=== PATIENT | male | born 1975 | race Caucasian/White ===

== ENCOUNTER 2021-08-05 13:01 | Emergency (ER) | payer OTHER, SELFPAY ==
[2021-08-05 13:07] VITALS: BP 150/82; PULSE 130; RESP 26; TEMP 36.4; O2SAT 96; BMI 14.3
--- NOTE | 2021-08-05 13:37 | W.ED.PSYCHS ---
HPI - Psych General: Chief Complaint: Psychiatric Symptoms Stated Complaint: PSYCH EVAL Time Seen by Provider: 08/05/21 13:03 History of Present Illness: Patient is brought in by police for psychiatric evaluation. Per the police affidavit the patient was breaking windows out of a buddhism, and admitted that he was using methamphetamines. The patient states that he has been acting out scenes from a movie all day, and at the power lines been talking to him. To me he states he was using bath salts last week, and that he does not remember this morning or last night. Review of Systems Const: Denies: fever(s) or body aches Eyes: Denies: change in vision or blurry vision ENMT: Denies: throat pain or odynophagia Card: Denies: chest pain or palpitations Resp: Denies: dyspnea or productive cough GI: Denies: abdominal pain, nausea or vomiting : Denies: flank pain or dysuria Musc: Denies: neck pain or back pain Skin/Breast: Denies: rash or pruritus Neuro: Denies: headache(s) or numbness in extremities Psych: Denies: anxiety or change in appetite Endo: Denies: polyuria or excessive sweating Physical Exam Const: COMMON NORMALS: no acute distress, patient oriented x3, healthy appearing and alert HENMT: COMMON NORMALS: normocephalic and atraumatic HEAD & SCALP: normocephalic and atraumatic Eye: COMMON NORMALS: Equal, round and reactive pupils present and EOMs intact bilaterally PUPIL: Yes Equal, round and reactive pupils present Neck/C-Spine: COMMON NORMALS: full ROM and supple Resp: COMMON NORMALS: normal respiratory effort, No retractions and No use of accessory muscles Cardio: COMMON NORMALS: regular rate and regular rhythm RATE: regular rate RHYTHM: regular rhythm GI: COMMON NORMALS: Normal to inspection, nondistended, normoactive bowel sounds present, Soft to palpation and non-tender PALPATION: Yes Soft to palpation Back/Pelvis: COMMON NORMALS: thoracic and lumbar spine normal to inspection and no thoracic nor lumbar tenderness Extremity: COMMON NORMALS: normal to inspection and full ROM Neuro: COMMON NORMALS: patient oriented x3 SENSORIUM/ORIENTATION: Yes alert Psych: COMMON NORMALS: mental status grossly normal and cooperative Skin: COMMON NORMALS: no rashes or lesions noted and no wounds GENERAL SKIN EXAM: no rashes or lesions noted Course Vital Signs: Vital signs: Vital Signs Temperature 97.5 F L 08/05/21 13:07 Pulse Rate 120 H 08/05/21 14:14 Respiratory Rate 26 H 08/05/21 13:07 Blood Pressure 150/82 08/05/21 14:14 Pulse Oximetry 96 08/05/21 14:14 MDM - Psych Medical Decision Making Patient is brought in by police for psychiatric evaluation. Per the police affidavit the patient was breaking windows out of a buddhism, and admitted that he was using methamphetamines. The patient states that he has been acting out scenes from a movie all day, and at the power lines been talking to him. To me he states he was using bath salts last week, and that he does not remember this morning or last night. He is cooperative, but fidgety on exam. He also has a well-healing superficial abrasion to his frontal scalp. Will check labs, and reassess. On reassessment I talked to the patient about the test results. He is awake and alert. He is not suicidal or homicidal. Will discharge home at this time with precautions to return for worsening or changing symptoms. Lab Data : 08/05/21 14:06 08/05/21 14:06 Laboratory Results WBC 13.0 10^3/uL (4.0-10.0) H 08/05/21 14:06 RBC 4.21 10^6/uL (4.1-5.3) 08/05/21 14:06 Hgb 14.5 g/dL (11.7-16.6) 08/05/21 14:06 Hct 41.4 % (42.0-52.0) L 08/05/21 14:06 MCV 98.3 fl (80-94) H 08/05/21 14:06 MCH 34.4 pg (28.0-34.0) H 08/05/21 14:06 MCHC 35.0 g/dL (30.0-36.0) 08/05/21 14:06 RDW 12.3 % (12.1-15.1) 08/05/21 14:06 Plt Count 295 10^3/cmm (130-400) 08/05/21 14:06 MPV 9.9 fL (7.4-10.4) 08/05/21 14:06 Neut % (Auto) 72.2 % 08/05/21 14:06 Lymph % (Auto) 11.8 % 08/05/21 14:06 [place] % (Auto) 14.3 % 08/05/21 14:06 Eos % (Auto) 0.9 % 08/05/21 14:06 Baso % (Auto) 0.5 % 08/05/21 14:06 Neut # (Auto) 9.38 10^3/uL (1.8-7.7) H 08/05/21 14:06 Lymph # (Auto) 1.5 10^3/uL (0.8-4.8) 08/05/21 14:06 [place] # (Auto) 1.9 10^3/uL (0.2-0.9) H 08/05/21 14:06 Eos # (Auto) 0.1 10^3/uL (0.0-0.8) 08/05/21 14:06 Baso # (Auto) 0.1 10^3/uL (0.0-0.1) 08/05/21 14:06 Nucleated RBC % (auto) 0 % 08/05/21 14:06 Nucleated RBCs # 0.0 /100WBC 08/05/21 14:06 Sodium 132 mmol/L (136-145) L 08/05/21 14:06 Potassium 3.3 mmol/L (3.5-5.1) L 08/05/21 14:06 Chloride 89 mmol/L (98-107) L 08/05/21 14:06 Carbon Dioxide 20 mmol/L (22-29) L 08/05/21 14:06 Anion Gap 26.3 (5-19) H 08/05/21 14:06 BUN 15 mg/dL (6-20) 08/05/21 14:06 Creatinine 0.9 mg/dL (0.7-1.2) 08/05/21 14:06 GFR Calculation 92.1 mL/min (90-130) 08/05/21 14:06 Glucose 93 mg/dL (65-115) 08/05/21 14:06 Calculated Osmolality 275 mOsm/kg (285-295) L 08/05/21 14:06 Calcium 9.9 mg/dL (8.5-10.5) 08/05/21 14:06 Total Bilirubin 0.8 mg/dL (0.15-1.2) 08/05/21 14:06 AST 72 U/L (0-40) H 08/05/21 14:06 ALT 73 U/L (0-41) H 08/05/21 14:06 Alkaline Phosphatase 93 IU/L (40-130) 08/05/21 14:06 Total Protein 8.5 g/dL (6.6-8.7) 08/05/21 14:06 Albumin 4.7 g/dL (3.5-5.2) 08/05/21 14:06 Globulin 3.8 g/dL (1.3-4.6) 08/05/21 14:06 Salicylates < 0.3 mg/dL (3-10) L 08/05/21 14:06 Urine Opiates Screen Negative ng/mL (Negative) 08/05/21 13:13 Acetaminophen < 5.0 ug/mL (10-30) L 08/05/21 14:06 Ur Barbiturates Screen Negative ng/mL (Negative) 08/05/21 13:13 Ur Phencyclidine Scrn Negative ng/mL (Negative) 08/05/21 13:13 Ur Amphetamines Screen Positive ng/mL (Negative) H 08/05/21 13:13 U Benzodiazepines Scrn Negative ng/mL (Negative) 08/05/21 13:13 Urine Cocaine Screen Negative ng/mL (Negative) 08/05/21 13:13 U Marijuana (THC) Screen Positive ng/mL (Negative) H 08/05/21 13:13 Ethyl Alcohol < 10 mg/dL (0-10) 08/05/21 14:06 Discharge Plan Discharge Patient Disposition: Home Clinical Impression: Methamphetamine abuse Condition: Stable Prescriptions: No Action Unable to Assess 0RF Discharge Orders: Discharge ED (Routine); Ordered 08/05/21 Ordered By: Blas Guerrero Referrals: [facility], [facility] MAINT ENG-C [Nurse Practitioner] - Coding Level of Care Code ED Auto Dealership Porter for [place] Fwd Exam Comprehensive
[2021-08-05 13:57] LABS: Amphetamines Screen Urine Positive (Negative); Barbiturates Screen Urine Negative (Negative); Benzodiazepines Screen Urine Negative (Negative); Cocaine Screen Urine Negative (Negative); Opiate Screen Urine Negative (Negative); PCP Screen Urine Negative (Negative); THC Screen Urine Positive (Negative)
[2021-08-05 14:14] VITALS: BP 150/82; PULSE 120; O2SAT 96
[2021-08-05 14:14] LABS: Basophils # 0.1 10^3/uL (0.0-0.1); Basophils % 0.5 %; Eosinophils # 0.1 10^3/uL (0.0-0.8); Eosinophils % 0.9 %; Hematocrit 41.4 % (42.0-52.0); Hemoglobin 14.5 g/dL (11.7-16.6); Lymphocytes # 1.5 10^3/uL (0.8-4.8); Lymphocytes % 11.8 %; Mean Corpuscular Hemoglobin 34.4 pg (28.0-34.0); Mean Corpuscular Volume 98.3 fl (80-94); Mean Platelet Volume 9.9 fL (7.4-10.4); Monocytes # 1.9 10^3/uL (0.2-0.9); Monocytes % 14.3 %; Neutrophils # 9.38 10^3/uL (1.8-7.7); Neutrophils % 72.2 %; Nucleated Red Blood Cells % 0 %; Platelet Count 295 10^3/cmm (130-400); Red Blood Count 4.21 10^6/uL (4.1-5.3); Red Cell Distribution Width 12.3 % (12.1-15.1)
[2021-08-05 14:30] LABS: Alanine Aminotransferase 73 U/L (0-41); Albumin Level 4.7 g/dL (3.5-5.2); Alkaline Phosphatase 93 IU/L (40-130); Anion Gap 26.3 (5-19); Aspartate Amino Transferase 72 U/L (0-40); Blood Urea Nitrogen 15 mg/dL (6-20); Calcium 9.9 mg/dL (8.5-10.5); Carbon Dioxide 20 mmol/L (22-29); Chloride 89 mmol/L (98-107); Globulin 3.8 g/dL (1.3-4.6); Glomerular Filtration Rate 92.1 mL/min (90-130); Glucose 93 mg/dL (65-115); Osmolality Calculated 275 mOsm/kg (285-295); Potassium 3.3 mmol/L (3.5-5.1); Sodium 132 mmol/L (136-145); Total Bilirubin 0.8 mg/dL (0.15-1.2); Total Protein 8.5 g/dL (6.6-8.7)
[2021-08-05 14:52] LABS: Acetaminophen < 5.0 ug/mL (10-30); Alcohol Level < 10 mg/dL (0-10); Salicylate < 0.3 mg/dL (3-10)
== END 2021-08-05 18:09 | disposition home or self-care (01) ==
PROVIDERS: Emergency Provider Emergency Medicine
DX: Z04.6 Encounter for general psychiatric examination, requested by authority (principal); F15.10 Other stimulant abuse, uncomplicated; Z65.3 Problems related to other legal circumstances
CPT/HCPCS: 80053; 80306; 80307; 85025; 99283

== ENCOUNTER 2021-10-11 16:50 | Emergency (ER) | payer OTHER, SELFPAY ==
[2021-10-11 17:01] VITALS: BP 113/77; PULSE 92; RESP 16; TEMP 36.7; O2SAT 96; BMI 19.3
--- NOTE | 2021-10-11 17:22 | ECG_ITS ---
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 Measurements Intervals [place] Rate: 81 P: 74 IN: 136 QRS: 75 QRSD: 91 T: 79 QT: 413 QTc: 482 Interpretive Statements SINUS RHYTHM WITH OCCASIONAL VENTRICULAR PREMATURE COMPLEXES POSSIBLE LEFT ATRIAL ENLARGEMENT [-0.1mV P WAVE IN V1/V2] No previous ECG available for comparison Electronically Signed On 10-11-2021 19:31:24 CDT by Zoila Euceda M.D. [id number]
== END 2021-10-11 20:27 | disposition left against medical advice (07) ==
PROVIDERS: Emergency Provider Family Medicine
DX: Z53.21 Procedure and treatment not carried out due to patient leaving prior to being seen by health care provider (principal)
CPT/HCPCS: 93005

== ENCOUNTER 2023-05-29 04:17 | Emergency (ER) | payer OTHER, SELFPAY ==
[2023-05-29 04:20] VITALS: BP 137/100; PULSE 115; RESP 16; TEMP 36.6; O2SAT 99; BMI 21.5
--- NOTE | 2023-05-29 04:30 | XRR_ITS ---
PROCEDURE INFORMATION: Exam: XR Abdomen Exam date and time: 05/29/2023 4:03 AM Age: 47 years old Clinical indication: Nausea and vomiting; Additional info: Nausea/vomiting TECHNIQUE: Imaging protocol: Radiologic exam of the abdomen. Views: Frontal supine view of the abdomen. 1 View. COMPARISON: No relevant prior studies available. FINDINGS: Gastrointestinal tract: Paucity of bowel gas is noted. [id number] colonic stool burden. Bones/joints: Diffuse degenerative changes visualized osseous structures. XR/XR abdomen 1V* [id number] IMPRESSION: 1. Paucity of bowel gas, nonspecific, may represent enteritis. 2. No overt evidence for obstruction. 3. Additional findings as above.
--- NOTE | 2023-05-29 04:32 | ED_ITS ---
HPI - Nausea/Vomiting/Diarrhea 2 General: Chief complaint: Nausea/Vomiting/Diarrhea Stated complaint: n/v Time Seen by Provider: 05/29/23 04:26 History of Present Illness: 47-year-old male presents to the emergen cy department with complaints of nausea and vomiting and intermittent diarrhea for the previous 2 days. He states he is unsure the number of times that he has had nausea and vomiting over the past 12 to 24 hours. He states that he thinks it is more than 10. He states that he does smoke 2 packs of cigarettes daily and drinks approximately 1/5 of hard liquor daily. He states he does endorse marijuana use and has previously used methamphetamine years ago. He endorses dark-colored urine production. He states he is also had subjective fever as well as a nonproductive cough over the same duration of time. He denies hematic emesis or hematochezia. 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 He states he does have some intermittent abdominal cramping that is generalized and he states his current pain is a 2 out of 10. Associated nausea: Yes Associated symtoms: Reports fatigue, malaise and nausea Review of Systems 2 General: Reports: 10 or more systems reviewed and unremarkable except in HPI and below Const: Reports: fever(s), chills, fatigue and malaise Resp: Reports: non-productive cough; Denies: dyspnea or wheezing GI: Reports: abdominal pain, nausea, vomiting and diarrhea Physical Exam 2 Narrative: EXAM NARRATIVE: Constitutional: the patient appears well nourished and with normal development. Vital signs reviewed as documented. None ill-appearing, no acute distress, HENMT: Normocephalic, atraumatic. External ears normal appearance without drainage. Nose without drainage, normal appearance. Mucus membranes moist. Neck is supple, No jugular venous distension, trachea is midline. No lymphadenopathy. No meningeal signs. Flexion, extension and lateral rotation is without pain. Eyes: Pupils are equal, round. No scleral icterus. Extra-ocular movement are intact. Thorax is symmetrical and with equal rise and fall with respirations. Resp: Lungs are clear to auscultation. No wheezes, rales, crackles or ronchi at present. Cardio: Sinus tachycardia. Positive S1, S2. No appreciable murmurs, rubs or gallops. GI: Abdominal exam reveals normal bowel sounds to all quadrants. No organomegaly. No obvious palpable masses noted. No hepatomegally appreciated. Soft, non-tender to palpation. Extremity: Extremities are non-edematous and both femoral and pedal pulses are 2+ and equal bilaterally. Moves all extremities well, sensation in all extremities. Neuro: Alert and oriented x4, person, place, time and situation. Cranial nerves II through XII are grossly intact, there is no focal neurological deficits that I can appreciate at present. Motor strength in the upper and lower extremities are equal and bilateral 5/5. Psych: Cooperative, calm, normal thought process, appropriate judgment. Skin: No lesions, rashes. No gross abnormalities noted. Back: Symmetrical, no obvious deformity, No CVA tenderness Course 2 Reevaluation(s): Reevaluation #1: Patient states that he feels much better he has had no additional nausea or vomiting while here in the emergency department. He states that after the IV fluid completion he feels like he has more energy and is not having any difficulties. Time: 05:40 Vital Signs: Vital signs: Vital Signs Temperature 97.8 F 05/29/23 04:20 Pulse Rate 100 05/29/23 05:53 Respiratory Rate 16 05/29/23 05:53 Blood Pressure 144/93 05/29/23 05:53 Pulse Oximetry 99 05/29/23 05:53 Oxygen Delivery Me thod Nasal Cannula 05/29/23 05:30 MDM - Nausea/Vomiting/Diarrhea Medical Decision Making Physical exam completed and documented I will obtain a CBC and CMP as well as lipase and provide the patient with IV fluid rehydration and antinausea medication. Differential diagnosis includes pancreatitis, gastroenteritis, colitis, viral illness, dehydration, electrolyte abnormality. Medical Records I reviewed the patient's medical records. Lab Data I reviewed the patient's lab results. 05/29/23 04:25 05/29/23 04:25 Radiology Impressions Abdomen X-Ray 05/29/23 04:30 IMPRESSION: 1. Paucity of bowel gas, nonspecific, may represent enteritis. 2. No overt evidence for obstruction. 3. Additional findings as above. Laboratory Results WBC 13.93 10^3/uL (3.29-11.43) H 05/29/23 04:25 RBC 4.55 10^6/uL (3.85-5.65) 05/29/23 04:25 Hgb 17.00 g/dL (11.27-16.99) H 05/29/23 04:25 Hct 50.8 % (37-53) 05/29/23 04:25 MCV 111.6 fl (82-101) H 05/29/23 04:25 MCH 37.4 pg (27-33) H 05/29/23 04:25 MCHC 33.5 g/dL (30-55) 05/29/23 04:25 RDW 13.9 % (12.1-15.1) 05/29/23 04:25 Plt Count 234 10^3/cmm (157-399) 05/29/23 04:25 MPV 9.8 fL (7.4-10.4) 05/29/23 04:25 Neut % (Auto) 81.8 % 05/29/23 04:25 Lymph % (Auto) 10.3 % 05/29/23 04:25 [place] % (Auto) 7.2 % 05/29/23 04:25 Eos % (Auto) 0.1 % 05/29/23 04:25 Baso % (Auto) 0.2 % 05/29/23 04:25 Neut # (Auto) 11.40 10^3/uL (1.8-7.7) H 05/29/23 04:25 Lymph # (Auto) 1.4 10^3/uL (0.8-4.8) 05/29/23 04:25 [place] # (Auto) 1.0 10^3/uL (0.2-0.9) H 05/29/23 04:25 Eos # (Auto) 0.0 10^3/uL (0.0-0.8) 05/29/23 04:25 Baso # (Auto) 0.0 10^3/uL (0.0-0.1) 05/29/23 04:25 Nucleated RBC % (auto) 0 % 05/29/23 04:25 Nucleated RBCs # 0.0 /100WBC 05/29/23 04:25 Sodium 133 mmol/L (136-145) L 05/29/23 04:25 Potassium 3.5 mmol/L (3.5-5.1) 05/29/23 04:25 Chloride 88 mmol/L (98-107) L 05/29/23 04:25 Carbon Dioxide 24 mmol/L (22-29) 05/29/23 04:25 Anion Gap 24.5 (5-19) H 05/29/23 04:25 BUN 24 mg/dL (6-20) H 05/29/23 04:25 Creatinine 1.0 mg/dL (0.7-1.2) 05/29/23 04:25 GFR Calculation 80.8 mL/min (90-130) L 05/29/23 04:25 Glucose 115 mg/dL (65-115) 05/29/23 04:25 Calculated Osmolality 281 mOsm/kg (285-295) L 05/29/23 04:25 Calcium 10.0 mg/dL (8.5-10.5) 05/29/23 04:25 Total Bilirubin 1.3 mg/dL (0.15-1.2) H 05/29/23 04:25 AST 40 U/L (0-40) 05/29/23 04:25 ALT 39 U/L (0-41) 05/29/23 04:25 Alkaline Phosphatase 90 U/L (40-130) 05/29/23 04:25 Total Protein 9.0 g/dL (6.6-8.7) H 05/29/23 04:25 Albumin 4.6 g/dL (3.5-5.2) 05/29/23 04:25 Globulin 4.4 g/dL (1.3-4.6) 05/29/23 04:25 Lipase 21 U/L (13-60) 05/29/23 04:25 All radiology interpretation(s) finalized by discharge Discharge Plan Discharge Patient Disposition: Home Clinical Impression: Gastroenteritis Condition: Stable Prescriptions: New ondansetron HCl 4 mg tablet 4 mg PO Q12H 5 Days Qty: 10 0RF Discharge Orders: Discharge ED (Routine); Ordered 05/29/23 Ordered By: Maximus Elizabeth Discharge Diet: Advance as tolerated Discharge Activity: Resume usual activity Patient Instructions: Opioid Safety, Pain Management Activity Restrictions/Additional Instructions: Activity Restrictions/Additional Instructions: Thank you for choosing [facility] for your healthcare needs today. Please realize that you were seen in the Emergency Department and that we are providing you with an emergency medical screening exam and this may not be a complete and all inclusive of all the testing and or medical work-up that you may need to determine your ailment or severity of your illness. It is very important that you follow-up as instructed with your Primary care provider or Specialist for additional evaluation and to discuss your medical treatment plan. Y Coding Level of Care Code ED Corporate Logistics Manager for Mary Figueredo
[2023-05-29 04:33] LABS: Basophils % 0.2 %; Eosinophils % 0.1 %; Hematocrit 50.8 % (37-53); Lymphocytes # 1.4 10^3/uL (0.8-4.8); Lymphocytes % 10.3 %; Mean Corpuscular HGB Conc 33.5 g/dL (30-55); Mean Corpuscular Hemoglobin 37.4 pg (27-33); Mean Corpuscular Volume 111.6 fl (82-101); Mean Platelet Volume 9.8 fL (7.4-10.4); Monocytes % 7.2 %; Neutrophils % 81.8 %; Nucleated Red Blood Cells % 0 %; Platelet Count 234 10^3/cmm (157-399); Red Blood Count 4.55 10^6/uL (3.85-5.65); Red Cell Distribution Width 13.9 % (12.1-15.1); White Blood Count 13.93 10^3/uL (3.29-11.43)
[2023-05-29 04:36] VITALS: BP 137/100; PULSE 111; RESP 16; O2SAT 97
[2023-05-29] MEDS: ondansetron 2 mg/ML SDV 2 mL 4 MG IVP (04:53)
[2023-05-29] MEDS: sodium chloride 0.9% 1,000 ML 999 ML IV (04:53)
[2023-05-29 04:57] LABS: Alanine Aminotransferase 39 U/L (0-41); Albumin Level 4.6 g/dL (3.5-5.2); Alkaline Phosphatase 90 U/L (40-130); Blood Urea Nitrogen 24 mg/dL (6-20); Carbon Dioxide 24 mmol/L (22-29); Chloride 88 mmol/L (98-107); Creatinine Clr Calc Pharmacy 93.7011; Globulin 4.4 g/dL (1.3-4.6); Glomerular Filtration Rate 80.8 mL/min (90-130); Glucose 115 mg/dL (65-115); Lipase 21 U/L (13-60); Osmolality Calculated 281 mOsm/kg (285-295); Sodium 133 mmol/L (136-145); Total Bilirubin 1.3 mg/dL (0.15-1.2)
[2023-05-29 05:07] LABS: Anion Gap 24.5 (5-19); Aspartate Amino Transferase 40 U/L (0-40); Potassium 3.5 mmol/L (3.5-5.1)
[2023-05-29 05:10] VITALS: BP 137/100; PULSE 84; RESP 16; O2SAT 98
[2023-05-29 05:30] VITALS: BP 144/93; PULSE 101; RESP 16; O2SAT 99
[2023-05-29 05:53] VITALS: BP 144/93; PULSE 100; RESP 16; O2SAT 99
== END 2023-05-29 05:56 | disposition home or self-care (01) ==
PROVIDERS: Emergency Provider Internal Medicine
DX: K52.9 Noninfective gastroenteritis and colitis, unspecified (principal)
CPT/HCPCS: 74018; 80053; 83690; 85025; 96361; 96374; 99284; J2405; J7030

== ENCOUNTER 2023-10-21 21:12 | Emergency (ER) | payer OTHER, SELFPAY ==
[2023-10-21 21:13] VITALS: BP 135/83; PULSE 80; RESP 16; TEMP 36.5; O2SAT 100; BMI 18.6
--- NOTE | 2023-10-21 21:42 | ED_ITS ---
HPI - Nausea/Vomiting/Diarrhea 2 General: Chief complaint: Nausea/Vomiting/Diarrhea Stated complaint: Nausea, abd pain Time Seen by Provider: 10/21/23 21:21 History of Present Illness: 47-year-old man who presents emergency r oom with reflux symptoms, nausea some vomiting. He says he has had this chronically but it is much worse tonight and he really wants to try to get the vomiting and nausea to stop. No focal abdominal pain. No fevers. No diarrhea. Related Data Previous Rx's Medication Instructions Recorded famotidine 40 mg tablet 40 mg PO DAILY #7 tabs 10/21/23 ondansetron 8 mg disintegrating 8 mg PO Q6H #14 tabs 10/21/23 tablet Allergies Allergy/AdvReac Type Severity Reaction Status Date / Time No Known Allergies Allergy Verified 05/29/23 04:24 Review of Systems 2 Narrative: Constitutional symptoms: Negative except as documented in HPI. Skin symptoms: Negative except as documented in HPI. Eye symptoms: Negative except as documented in HPI. ENMT symptoms: Negative except as documented in HPI. Respiratory symptoms: Negative except as documented in HPI. Cardiovascular symptoms: Negative except as documented in HPI. Gastrointestinal symptoms: Negative except as documented in HPI. Genitourinary symptoms: Negative except as documented in HPI. Musculoskeletal symptoms: Negative except as documented in HPI. Neurologic symptoms: Negative except as documented in HPI. Psychiatric symptoms: Negative except as documented in HPI. Endocrine symptoms: Negative except as documented in HPI. Physical Exam 2 Narrative: EXAM NARRATIVE: General: Alert, no acute distress. Skin: Warm, dry. Head: Normocephalic, atraumatic. Neck: Supple, trachea midline. Eye: Extraocular movements are intact. Ears, nose, mouth and throat: Tacky oral mucosa Cardiovascular: Regular, Normal peripheral perfusion. Respiratory: Lungs are clear to auscultation, respirations are non-labored, breath sounds are equal, Symmetrical chest wall expansion. Gastrointestinal: Soft, Nontender, Non distended Musculoskeletal: Normal ROM, no deformity. Neurological: Alert and oriented, No focal neurological deficit observed. Psychiatric: Cooperative, appropriate mood & affect. Course 2 Vital Signs: Vital signs: Vital Signs Temperature 97.7 F 10/21/23 21:13 Pulse Rate 80 10/21/23 21:13 Respiratory Rate 16 10/21/23 21:13 Blood Pressure 135/83 10/21/23 21:13 Pulse Oximetry 100 10/21/23 21:13 Oxygen Delivery Me thod Room Air 10/21/23 21:13 MDM - Nausea/Vomiting/Diarrhea Medical Decision Making Medical decision making: Differential diagnosis for this patient with nausea and vomiting including but not limited to and based on the above HPI, review of systems and physical exam: Urinary tract infection. Appendicitis. Cholecystis. colitis. small bowel obstruction. crohn's flare. pancreatitis. gastritis. peptic ulcer. cyclic vomiting. Viral illness. Influenza. COVID. - Workup - labwork and imaging ordered to evaluate, rule in and rule out above pathologies. Lab Review: Laboratory results were reviewed and interpreted by myself the emergency room physician. Lab review is unremarkable. No leukocytosis. No anemia. No renal failure. Urine is clear. Drug screen shows marijuana. I reviewed the patient's medical record. Reexamination: Patient remained stable. No increased work of breathing. No altered mental status. No focal motor deficits. Patient says his nausea is somewhat better now. Assessment and plan: Nausea and vomiting Dehydration ? Normal saline bolus and IV Zofran with IV Pepcid in the emergency room. - Discharged home - Discussed plan with patient. Answered any questions. - Evaluation and treatment of this problem were appropriate in the emergency setting. Lab Data 10/21/23 21:47 10/21/23 21:47 Laboratory Results WBC 6.86 10^3/uL (3.29-11.43) 10/21/23 21:47 RBC 3.55 10^6/uL (3.85-5.65) L 10/21/23 21:47 Hgb 13.60 g/dL (11.27-16.99) 10/21/23 21:47 Hct 39.9 % (37-53) 10/21/23 21:47 MCV 112.4 fl (82-101) H 10/21/23 21:47 MCH 38.3 pg (27-33) H 10/21/23 21:47 MCHC 34.1 g/dL (30-55) 10/21/23 21:47 RDW 13.4 % (12.1-15.1) 10/21/23 21:47 Plt Count 476 10^3/cmm (157-399) H 10/21/23 21:47 MPV 9.2 fL (7.4-10.4) 10/21/23 21:47 Neut % (Auto) 64.5 % 10/21/23 21:47 Lymph % (Auto) 25.5 % 10/21/23 21:47 [place] % (Auto) 7.6 % 10/21/23 21:47 Eos % (Auto) 1.0 % 10/21/23 21:47 Baso % (Auto) 1.3 % 10/21/23 21:47 Neut # (Auto) 4.42 10^3/uL (1.8-7.7) 10/21/23 21:47 Lymph # (Auto) 1.8 10^3/uL (0.8-4.8) 10/21/23 21:47 [place] # (Auto) 0.5 10^3/uL (0.2-0.9) 10/21/23 21:47 Eos # (Auto) 0.1 10^3/uL (0.0-0.8) 10/21/23 21:47 Baso # (Auto) 0.1 10^3/uL (0.0-0.1) 10/21/23 21:47 Nucleated RBC % (auto) 0 % 10/21/23 21:47 Nucleated RBCs # 0.0 /100WBC 10/21/23 21:47 Sodium 135 mmol/L (136-145) L 10/21/23 21:47 Potassium 3.4 mmol/L (3.5-5.1) L 10/21/23 21:47 Chloride 94 mmol/L (98-107) L 10/21/23 21:47 Carbon Dioxide 24 mmol/L (22-29) 10/21/23 21:47 Anion Gap 20.4 (5-19) H 10/21/23 21:47 BUN 4 mg/dL (6-20) L 10/21/23 21:47 Creatinine 0.7 mg/dL (0.7-1.2) 10/21/23 21:47 GFR Calculation 122.0 mL/min (90-130) 10/21/23 21:47 Glucose 103 mg/dL (65-115) 10/21/23 21:47 Calculated Osmolality 277 mOsm/kg (285-295) L 10/21/23 21:47 Calcium 8.8 mg/dL (8.5-10.5) 10/21/23 21:47 Total Bilirubin 0.3 mg/dL (0.15-1.2) 10/21/23 21:47 AST 36 U/L (0-40) 10/21/23 21:47 ALT 30 U/L (0-41) 10/21/23 21:47 Alkaline Phosphatase 86 U/L (40-130) 10/21/23 21:47 C-Reactive Protein 3.0 mg/L (0.0-4.9) 10/21/23 21:47 Total Protein 8.1 g/dL (6.6-8.7) 10/21/23 21:47 Albumin 4.2 g/dL (3.5-5.2) 10/21/23 21:47 Globulin 3.9 g/dL (1.3-4.6) 10/21/23 21:47 Lipase 22 U/L (13-60) 10/21/23 21:47 Urine Color Yellow (Yellow) 10/21/23 22:08 Urine Appearance Clear (CLEAR) 10/21/23 22:08 Urine pH 6.5 (5-7) 10/21/23 22:08 Ur Specific [place] 1.008 (1.005-1.030) 10/21/23 22:08 Urine Protein Negative (Negative) 10/21/23 22:08 Urine Glucose (UA) Negative (Normal) 10/21/23 22:08 Urine Ketones Negative (Negative) 10/21/23 22:08 Urine Blood Negative (Negative) 10/21/23 22:08 Urine Nitrate Negative (Negative) 10/21/23 22:08 Urine Bilirubin Negative (Negative) 10/21/23 22:08 Urine Urobilinogen 1.0 mg/dL (Negative) 10/21/23 22:08 Ur Leukocyte Esterase Negative (Negative) 10/21/23 22:08 Urine RBC 0-2 /hpf (0-2) 10/21/23 22:08 Urine WBC 0-5 /hpf (0-5) 10/21/23 22:08 Ur Squamous Epith Cells 0-5 /hpf (0-5) 10/21/23 22:08 Amorphous Sediment Not Reportable 10/21/23 22:08 Urine Bacteria None seen /hpf (NONE) 10/21/23 22:08 Hyaline Casts 0-4 /lpf H 10/21/23 22:08 Urine Opiates Screen Negative ng/mL (Negative) 10/21/23 22:08 Ur Barbiturates Screen Negative ng/mL (Negative) 10/21/23 22:08 Ur Phencyclidine Scrn Negative ng/mL (Negative) 10/21/23 22:08 Ur Amphetamines Screen Negative ng/mL (Negative) 10/21/23 22:08 U Benzodiazepines Scrn Negative ng/mL (Negative) 10/21/23 22:08 Urine Cocaine Screen Negative ng/mL (Negative) 10/21/23 22:08 U Marijuana (THC) Screen Positive ng/mL (Negative) H 10/21/23 22:08 No radiology studies performed this visit Discharge Plan Discharge Patient Disposition: Home Clinical Impression: Vomiting, Dehydration, GERD without esophagitis Condition: Stable Prescriptions: New famotidine 40 mg tablet 40 mg PO DAILY Qty: 7 0RF ondansetron 8 mg tablet,disintegrating 8 mg PO Q6H Qty: 14 0RF Rx Instructions: Take 1/2-1 tab every 6 hours as needed for nausea and vomiting Discharge Orders: Discharge ED (Routine); Ordered 10/21/23 Ordered By: Helen Casiano Discharge Diet: Advance as tolerated Discharge Activity: Increase activity as tolerated Patient Instructions: Dehydration (ED), Opioid Safety, Pain Management Activity Restrictions/Additional Instructions: Thank you for choosing [facility] for your healthcare needs today. Please realize this is an emergency room and that we are providing you with a medical screening exam and this may not be complete and all inclusive of all the testing and or work up that you may need to determine your ailment or severity of your illness. You have been screened and evaluated and felt safe for discharge. Health conditions do change or evolve sometimes and as such it is important that you follow up with your Primary Doctor to be re checked, 3-5 days is a general good time frame for follow up. You are always welcome to return to the ED for re assessment if your symptoms are worsening or you have new concerns Coding Level of Care Code ED Chemist Organic for Mary Figueredo
[2023-10-21 21:54] LABS: Basophils # 0.1 10^3/uL (0.0-0.1); Basophils % 1.3 %; Eosinophils # 0.1 10^3/uL (0.0-0.8); Hematocrit 39.9 % (37-53); Lymphocytes # 1.8 10^3/uL (0.8-4.8); Lymphocytes % 25.5 %; Mean Corpuscular HGB Conc 34.1 g/dL (30-55); Mean Corpuscular Hemoglobin 38.3 pg (27-33); Mean Corpuscular Volume 112.4 fl (82-101); Mean Platelet Volume 9.2 fL (7.4-10.4); Monocytes # 0.5 10^3/uL (0.2-0.9); Monocytes % 7.6 %; Neutrophils # 4.42 10^3/uL (1.8-7.7); Neutrophils % 64.5 %; Nucleated Red Blood Cells % 0 %; Platelet Count 476 10^3/cmm (157-399); Red Blood Count 3.55 10^6/uL (3.85-5.65); Red Cell Distribution Width 13.4 % (12.1-15.1); White Blood Count 6.86 10^3/uL (3.29-11.43)
[2023-10-21 22:00] VITALS: BP 151/90; PULSE 73; O2SAT 96
[2023-10-21] MEDS: ondansetron 2 mg/ML SDV 2 mL 8 MG IVP (22:04)
[2023-10-21] MEDS: sodium chloride 0.9% 1,000 ML 999 ML IV (22:04)
[2023-10-21] MEDS: famotidine 20 mg/2 mL INJ 40 MG IVP (22:06)
[2023-10-21 22:11] LABS: Alanine Aminotransferase 30 U/L (0-41); Albumin Level 4.2 g/dL (3.5-5.2); Alkaline Phosphatase 86 U/L (40-130); Aspartate Amino Transferase 36 U/L (0-40); Blood Urea Nitrogen 4 mg/dL (6-20); Calcium 8.8 mg/dL (8.5-10.5); Carbon Dioxide 24 mmol/L (22-29); Chloride 94 mmol/L (98-107); Creatinine Clr Calc Pharmacy 111.1481; Globulin 3.9 g/dL (1.3-4.6); Glucose 103 mg/dL (65-115); Lipase 22 U/L (13-60); Osmolality Calculated 277 mOsm/kg (285-295); Sodium 135 mmol/L (136-145); Total Bilirubin 0.3 mg/dL (0.15-1.2); Total Protein 8.1 g/dL (6.6-8.7)
[2023-10-21 22:12] LABS: Anion Gap 20.4 (5-19); Potassium 3.4 mmol/L (3.5-5.1)
[2023-10-21 22:17] LABS: Bilirubin Urine Negative (Negative); Blood Urine Negative (Negative); Glucose Urine UA Negative (Normal); Ketones Urine Negative (Negative); Leukocyte Esterase Urine Negative (Negative); Nitrate Urine Negative (Negative); Protein Urine Negative (Negative); Specific Gravity, Urine 1.008 (1.005-1.030); Urine Appearance Clear (CLEAR); Urine Color Yellow (Yellow); pH Urine 6.5 (5-7)
[2023-10-21 22:22] LABS: Bacteria Urine None Seen /hpf; Hyaline Casts Urine 0-4 /lpf; RBC Urine 0-2 /hpf (0-2); Squamous Epithelial Cell Urine 0-5 /hpf (0-5); WBC Urine 0-5 /hpf (0-5)
[2023-10-21 22:24] LABS: Amphetamines Screen Urine Negative (Negative); Barbiturates Screen Urine Negative (Negative); Benzodiazepines Screen Urine Negative (Negative); Cocaine Screen Urine Negative (Negative); Opiate Screen Urine Negative (Negative); PCP Screen Urine Negative (Negative); THC Screen Urine Positive (Negative)
[2023-10-21 22:30] VITALS: BP 145/83; PULSE 73; O2SAT 98
== END 2023-10-21 23:02 | disposition home or self-care (01) ==
PROVIDERS: Emergency Medicine; Emergency Provider Emergency Medicine
DX: K21.9 Gastro-esophageal reflux disease without esophagitis (principal); E86.0 Dehydration; R11.2 Nausea with vomiting, unspecified
CPT/HCPCS: 36415; 80053; 80306; 81001; 83690; 85025; 86140; 96361; 96374; 96375; 99284; J2405; J3490; J7030

== ENCOUNTER 2024-12-15 11:56 | Inpatient (IN) | payer SELFPAY ==
--- OUTSIDE RECORDS SUMMARY | 2023-10-28 08:40 | XMS_ITS ---
Author Organization [facility] Address [address] [place] [address] Care Team Providers Care Instrument Maintenance Supervisor Name Role Phone Edilberto Daly Primary Care Provider [phone] REASON FOR VISIT GUT ISSUES Encounters Encounter Location Date Provider Diagnosis [facility] [address] [place] [id number] 10/28/2023 Edilberto Daly Plan Of Treatment No Information Progress Notes * MAGGIE CORNELLOB:1975 (49 yo M)Acc No.[id number]:10/28/2023 Progress Notes Patient: BRANDT CLEMENTE Provider: Edith Daly MD :1975 A ge:47 Y S ex:Male Date:10/28/2023 Address:[address], [id number] Subjective: * Chief Complaints: * G UT ISSUES * Electronic signature of Raghu Daly MD on 12/15/2024 at 12:00 PM CDT Sign off status: Pending * Provider: Edith Daly MD Date: 0 10/28/2023 Generated for Braulio barajas/Lupis/eTransmitting on: 1 12:00 PM CDT
--- OUTSIDE RECORDS SUMMARY | 2024-06-23 09:20 | XMS_ITS ---
Author Organization [facility] Address [address] [place] [address] Care Team Providers Care Technology Project Manager Name Role Phone Edilberto Daly Primary Care Provider REASON FOR VISIT ANXIETY Encounters Encounter Location Date Provider Diagnosis [facility] [address] [place] [id number] 06/23/2024 Edilberto Daly Plan Of Treatment No Information Progress Notes * MAGGIE CORNELLOB:1975 (49 yo M)Acc No.[id number]:06/23/2024 Progress Notes Patient: BRANDT CLEMENTE Provider: Edith Daly MD :1975 A ge:48 Y S ex:Male Date:06/23/2024 Address:[address], [id number] Subjective: * Chief Complaints: * A NXIETY * Electronic signature of Raghu Daly MD on 12/15/2024 at 11:59 AM CDT Sign off status: Pending * Provider: Edith Daly MD Date: 0 06/23/2024 Generated for Braulio barajas/Lupis/eTransmitting on: 1 11:59 AM CDT
--- NOTE | 2024-12-15 11:58 | ED.C_ITS ---
HPI - Psych 2 General: Chief Complaint: Psychiatric Symptoms Stated Complaint: 96 Time Seen by Provider: 12/15/24 11:57 History of Present Illness: 49-year-old man who presents to the [facility] room with police on a 96-hour court ordered hold. He recently lost his job and according to affidavits he had been threatening students. He admits to a long history of suicidal thoughts that have worsened recently. He does state he has been drinking today. Related Data Previous Rx's ?Medication ?Instructions ?Recorded famotidine 40 mg tablet 40 mg PO DAILY #7 tabs 10/20 ondansetron 8 mg disintegrating 8 mg PO Q6H #14 tabs 0 10/21/23 tablet Allergies Allergy/AdvReac Type Severity Reaction Status Date / Time No Known Allergies Allergy Verified 05/29/23 04:24 Review of Systems 2 Narrative: Constitutional symptoms: Negative except as documented in HPI. Skin symptoms: Negative except as documented in HPI. Eye symptoms: Negative except as documented in HPI. ENMT symptoms: Negative except as documented in HPI. Respiratory symptoms: Negative except as documented in HPI. Cardiovascular symptoms: Negative except as documented in HPI. Gastrointestinal symptoms: Negative except as documented in HPI. Genitourinary symptoms: Negative except as documented in HPI. Musculoskeletal symptoms: Negative except as documented in HPI. Neurologic symptoms: Negative except as documented in HPI. Psychiatric symptoms: Negative except as documented in HPI. Endocrine symptoms: Negative except as documented in HPI. Physical Exam 2 Narrative: EXAM NARRATIVE: General: Alert, no acute distress. Skin: Warm, dry. Head: Normocephalic, atraumatic. Neck: Supple, trachea midline. Eye: Extraocular movements are intact. Ears, nose, mouth and throat: mucosa moist. Cardiovascular: Regular, Normal peripheral perfusion. Respiratory: Lungs are clear to auscultation, respirations are non-labored, breath sounds are equal, Symmetrical chest wall expansion. Gastrointestinal: Soft, Nontender, Non distended Musculoskeletal: Normal ROM, no deformity. Neurological: Alert and oriented, No focal neurological deficit observed. Psychiatric: Cooperative, endorses suicidal thoughts Course 2 Vital Signs: Vital signs: Vital Signs Temperature 97.9 F 12/15/24 11:59 Pulse Rate 75 12/15/24 12:22 Respiratory Rate 16 12/15/24 11:59 Blood Pressure 131/83 12/15/24 11:59 Pulse Oximetry 95 12/15/24 11:59 Oxygen Delivery Me thod Room Air 12/15/24 11:59 MDM - Psych Medical Decision Making Differential diagnosis: Patient with reported depression and suicidal ideation. concerns for infection, alcohol intoxication, cardiac issues or other medical problems prior to psychiatric admission. Workup: labwork, ekg ordered to evaluate the pathologies and to clear the patient medically prior to psychiatric admission EKG: Time 1209. Rate 74. Normal sinus rhythm, No ST-T changes, no ectopy, normal UT & QRS intervals, This was reviewed and interpreted by myself the ER physician at 1215 Lab Review: Laboratory results were reviewed and interpreted by myself the emergency room physician. - Medically cleared. - EKG shows no ischemic changes. - Blood alcohol level is 200 -Tylenol and salicylate levels are negative. - Drug screen is positive for marijuana - No signs of infection, urinalysis clear and white count is not elevated - No anemia. - BUN and creatinine are within normal limits. I did review the patient's chart. He is had 3 previous ER visits here and no previous psychiatric admissions. Consultation: I spoke with Dr. Briggs who is on-call for psychiatry who agrees to admission. Reexamination: Patient has remained stable. No altered mental status. He has been drinking but does not appear overtly intoxicated. No increased work of breathing. Assessment and plan: Suicidal ideation Depression Court ordered 96-hour hold Alcohol intoxication -Admission to neuropsychiatric unit for continued evaluation and treatment. - All lab work was reviewed and interpreted personally by myself, the ER physician - Evaluation and treatment of this problem were appropriate in the emergency setting Lab Data 12/15/24 12:11 12/15/24 12:11 Laboratory Results WBC 6.33 10^3/uL (3.29-11.43) 12/15/24 12:11 RBC 3.74 10^6/uL (3.85-5.65) L 12/15/24 12:11 Hgb 13.00 g/dL (11.27-16.99) 12/15/24 12:11 Hct 39.3 % (37-53) 12/15/24 12:11 MCV 105.1 fl (82-101) H 12/15/24 12:11 MCH 34.8 pg (27-33) H 12/15/24 12:11 MCHC 33.1 g/dL (30-55) 12/15/24 12:11 RDW 16.0 % (12.1-15.1) H 12/15/24 12:11 Plt Count 372 10^3/cmm (157-399) 12/15/24 12:11 MPV 8.7 fL (7.4-10.4) 12/15/24 12:11 Neut % (Auto) 35.2 % 12/15/24 12:11 Lymph % (Auto) 44.7 % 12/15/24 12:11 [place] % (Auto) 11.8 % 12/15/24 12:11 Eos % (Auto) 6.8 % 12/15/24 12:11 Baso % (Auto) 1.3 % 12/15/24 12:11 Neut # (Auto) 2.23 10^3/uL (1.8-7.7) 12/15/24 12:11 Lymph # (Auto) 2.8 10^3/uL (0.8-4.8) 12/15/24 12:11 [place] # (Auto) 0.8 10^3/uL (0.2-0.9) 12/15/24 12:11 Eos # (Auto) 0.4 10^3/uL (0.0-0.8) 12/15/24 12:11 Baso # (Auto) 0.1 10^3/uL (0.0-0.1) 12/15/24 12:11 Nucleated RBC % (auto) 0 % 12/15/24 12:11 Nucleated RBCs # 0.0 /100WBC 12/15/24 12:11 Sodium 140 mmol/L (136-145) 12/15/24 12:11 Potassium 4.1 mmol/L (3.5-5.1) 12/15/24 12:11 Chloride 104 mmol/L (98-107) 12/15/24 12:11 Carbon Dioxide 22 mmol/L (22-29) 12/15/24 12:11 Anion Gap 18.1 (5-19) 12/15/24 12:11 BUN 4 mg/dL (6-20) L 12/15/24 12:11 Creatinine 0.7 mg/dL (0.7-1.2) 12/15/24 12:11 GFR Calculation 120.9 mL/min (90-130) 12/15/24 12:11 Glucose 94 mg/dL (65-115) 12/15/24 12:11 Calculated Osmolality 287 mOsm/kg (285-295) 12/15/24 12:11 Calcium 8.8 mg/dL (8.5-10.5) 12/15/24 12:11 Total Bilirubin 0.2 mg/dL (0.15-1.2) 12/15/24 12:11 AST 20 U/L (0-40) 12/15/24 12:11 ALT 12 U/L (0-41) 12/15/24 12:11 Alkaline Phosphatase 80 U/L (40-130) 12/15/24 12:11 Total Protein 8.0 g/dL (6.6-8.7) 12/15/24 12:11 Albumin 4.5 g/dL (3.5-5.2) 12/15/24 12:11 Globulin 3.5 g/dL (1.3-4.6) 12/15/24 12:11 TSH 0.92 uIU/mL (0.27-4.20) 12/15/24 12:11 Urine Color Yellow (Yellow) 12/15/24 12:16 Urine Appearance Clear (CLEAR) 12/15/24 12:16 Urine pH 5.5 (5-7) 12/15/24 12:16 Ur Specific [place] 1.006 (1.005-1.030) 12/15/24 12:16 Urine Protein Negative (Negative) 12/15/24 12:16 Urine Glucose (UA) Negative (Normal) 12/15/24 12:16 Urine Ketones Negative (Negative) 12/15/24 12:16 Urine Blood Negative (Negative) 12/15/24 12:16 Urine Nitrate Negative (Negative) 12/15/24 12:16 Urine Bilirubin Negative (Negative) 12/15/24 12:16 Urine Urobilinogen 0.2 mg/dL (Negative) 12/15/24 12:16 Ur Leukocyte Esterase Negative (Negative) 12/15/24 12:16 Amorphous Sediment Not Reportable 12/15/24 12:16 Salicylates < 0.3 mg/dL (3-10) L 12/15/24 12:11 Urine Opiates Screen Negative ng/mL (Negative) 12/15/24 12:16 Acetaminophen < 5.0 ug/mL (10-30) L 12/15/24 12:11 Ur Barbiturates Screen Negative ng/mL (Negative) 12/15/24 12:16 Ur Phencyclidine Scrn Negative ng/mL (Negative) 12/15/24 12:16 Ur Amphetamines Screen Negative ng/mL (Negative) 12/15/24 12:16 U Benzodiazepines Scrn Negative ng/mL (Negative) 12/15/24 12:16 Urine Cocaine Screen Negative ng/mL (Negative) 12/15/24 12:16 U Marijuana (THC) Screen Positive ng/mL (Negative) H 12/15/24 12:16 Ethyl Alcohol 203 mg/dL (0-10) H 12/15/24 12:11 No radiology studies performed this visit Discharge Plan Discharge Patient Disposition: Admitted As Inpatient Clinical Impression: Depression, Suicidal ideation, Alcohol intoxication Condition: Stable Coding Level of Care Code ED Technical Solution Architect for Mary Figueredo
[2024-12-15 11:59] VITALS: BP 131/83; PULSE 151; RESP 16; TEMP 36.6; O2SAT 95
--- OUTSIDE RECORDS SUMMARY | 2024-12-15 12:00 | XMS_ITS | Patient Health Record ---
Author Organization [facility] Address [address] [place] [address] Care Team Providers Care Equipment Mechanic Name Role Phone Edilberto Daly Primary Care Provider Reason For Referral No Information Plan Of Treatment No Information
--- NOTE | 2024-12-15 12:09 | ECG_ITS ---
[facility] Test Date: 2024-12-15 Pat Name: Jamin Fox Department: Room: Gender: Male Intellectual Property Manager: : 1975 Requested By: Helen Avila Order Number: [id number] Courtney MD: Renae Zayas M.D. Measurements Intervals [place] Rate: 74 P: 50 ND: 125 QRS: 65 QRSD: 78 T: 59 QT: 355 QTc: 395 Interpretive Statements SINUS RHYTHM Compared to ECG 10/11/2021 17:06:38 Ventricular premature complex(es) no longer present Electronically Signed On 12-15-2024 23:50:06 CDT by Renae Zayas M.D. [email or web address]
[2024-12-15 12:20] LABS: Add Urine Microscopic? NO
[2024-12-15 12:22] VITALS: PULSE 75
[2024-12-15 12:22] LABS: Hematocrit 39.3 % (37-53); Hemoglobin 13.00 g/dL (11.27-16.99); Mean Corpuscular HGB Conc 33.1 g/dL (30-55); Mean Corpuscular Hemoglobin 34.8 pg (27-33); Mean Corpuscular Volume 105.1 fl (82-101); Nucleated Red Blood Cells % 0 %; Platelet Count 372 10^3/cmm (157-399); Red Blood Count 3.74 10^6/uL (3.85-5.65); White Blood Count 6.33 10^3/uL (3.29-11.43)
[2024-12-15 12:24] LABS: Glucose Urine UA Negative (Normal); Nitrate Urine Negative (Negative); Specific Gravity, Urine 1.006 (1.005-1.030)
[2024-12-15 12:31] LABS: PCP Screen Urine Negative (Negative)
[2024-12-15 12:35] LABS: Charge for UA Resulting for Rev
[2024-12-15 12:53] LABS: Alanine Aminotransferase 12 U/L (0-41); Albumin Level 4.5 g/dL (3.5-5.2); Alcohol Level 203 mg/dL (0-10); Alkaline Phosphatase 80 U/L (40-130); Aspartate Amino Transferase 20 U/L (0-40); Blood Urea Nitrogen 4 mg/dL (6-20); Calcium 8.8 mg/dL (8.5-10.5); Carbon Dioxide 22 mmol/L (22-29); Chloride 104 mmol/L (98-107); Creatinine Clr Calc Pharmacy 127.6927; Globulin 3.5 g/dL (1.3-4.6); Glucose 94 mg/dL (65-115); Osmolality Calculated 287 mOsm/kg (285-295); Sodium 140 mmol/L (136-145); Thyroid Stimulating Hormone 0.92 uIU/mL (0.27-4.20); Total Protein 8.0 g/dL (6.6-8.7)
[2024-12-15 12:56] LABS: Acetaminophen < 5.0 ug/mL (10-30); Salicylate < 0.3 mg/dL (3-10)
[2024-12-15 12:57] LABS: Anion Gap 18.1 (5-19); Potassium 4.1 mmol/L (3.5-5.1)
[2024-12-15 14:08] VITALS: BP 123/76; PULSE 73; O2SAT 100
[2024-12-15 14:35] VITALS: BP 117/77; PULSE 74; RESP 16; TEMP 36.9; O2SAT 100
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
[2024-12-15 19:42] VITALS: BP 140/85; PULSE 103; RESP 16; TEMP 36.8; O2SAT 98
[2024-12-16 06:00] VITALS: BP 126/83; PULSE 86; RESP 15; O2SAT 99
--- NOTE | 2024-12-16 08:45 | NUR.SHIFT ---
Pt states that he slept off and on. He rates his anxiety a 5/10 and depression a 0/10. No reports of SI/HI or hallucinations. No pain reported.
[2024-12-16] MEDS: multivitamin therapeutic Tablet 1 TAB PO (08:57)
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
[2024-12-16 14:00] VITALS: BP 139/81; PULSE 67; RESP 17; TEMP 36.7; O2SAT 100
--- NOTE | 2024-12-16 17:36 | PC.NURSE ---
Pt's family reported to this nurse that the pt has been huffing nitrous oxide cans recently that he picked up at hardware store.
[2024-12-16 20:48] VITALS: BP 143/90; PULSE 66; RESP 17; TEMP 36.7; O2SAT 100
[2024-12-17 06:00] VITALS: BP 115/82; PULSE 88; RESP 16; TEMP 36.6; O2SAT 98
[2024-12-17] MEDS: multivitamin therapeutic Tablet 1 TAB PO (08:17)
[2024-12-17 13:56] VITALS: BP 128/83; PULSE 65; RESP 20; TEMP 36.7; O2SAT 100
--- NOTE | 2024-12-17 14:20 | P.NPUPN_ITS ---
Subjective NPU 2 Subjective: Patient presented today reporting that he is feeling all right in general. He reports that he is unclear about the overall plan with regards to what he will do next. He was quite ambivalent per staff reports and direct observation and conversation about the possibility of rehab but he is considering going to maybe a retirement house situation where he can get employment and maintain his sobriety. He denied any side effects to his medication. Mental Status Exam 2 MSE Comments: This is a well-nourished well-developed white male in hospital scrubs with adequate grooming and eye contact. No abnormal movements except for mild psychomotor retardation. Cooperative with exam in mild to moderate distress. Speech was normal rate and slightly decreased volume. Mood described as depressed and anxious, affect congruent. Thought process organized. Thought content: Patient denied suicidal or homicidal ideation, there were no delusions reported or noted, he denies any auditory or visual hallucinations. Attention and concentration were intact and memory appeared reliable but none were formally tested. He is alert and oriented x3. Insight and judgment are limited. Impulse control is limited versus impaired.. Vitals/I&O/Wt Last Vital Signs Temp 98.1 F 12/17/24 13:56 Pulse 65 12/17/24 13:56 Resp 20 H 12/17/24 13:56 BP 128/83 12/17/24 13:56 Pulse Ox 100 12/17/24 13:56 O2 Del Method Room Air 12/17/24 13:56 Data NPU 12/15/24 12:11 12/15/24 12:11 A&P Assessment and plan 1. Depression: 2. Suicidal ideation: 3. Alcohol intoxication: 4. Alcohol withdrawal: Plan: This is a 49-year-old white male who presented with depression, anxiety and alcohol use and concerns for lethality. Significant psychosocial stressors with recent conflict with his father and being fired from work. 1. Continue current medication. We discussed the possibility of increasing his medication and/or possibly switching to Lexapro. 2. Encourage individual, group and milieu therapy. 3. Continue every 15 minute checks for safety. 4. Encourage sober living treatment after discharge at the highest level care to which he is willing to commit. 5. Obtain collateral information. 6. Observe against the backdrop of the 96-hour hold. 7. Continue CIWA protocol as indicated. PDMP PDMP Reviewed: Not Reviewed Involuntary Hold Information 2 Hold Status: Legal Status: 96 Hour Hold Date/Time Hold Expires: 12/22/2024 @ 1200 Attestations NPU 2 Medical Necessity Statement*: Inpatient hospitalization is medically necessary and the clinically appropriate intervention at this time. We will monitor/initiate medications and make changes as indicated. Likely length of stay 2-4 days. Coding Level of Care Code Acute Code for Chg Fwd Diagnoses Depression F32.A Suicidal ideation R45.851 Alcohol intoxication F10.929 Alcohol withdrawal F10.939
[2024-12-17 20:12] VITALS: BP 134/85; PULSE 67; RESP 17; TEMP 36.7; O2SAT 100
[2024-12-18 06:00] VITALS: BP 122/82; PULSE 76; RESP 16; TEMP 36.5; O2SAT 98
[2024-12-18] MEDS: multivitamin therapeutic Tablet 1 TAB PO (07:55)
[2024-12-18 14:00] VITALS: BP 120/88; PULSE 78; RESP 16; TEMP 36.4; O2SAT 96
--- NOTE | 2024-12-18 19:38 | P.NPUPN_ITS ---
Subjective NPU 2 Subjective: Patient presented today reporting that things are going all right. He identified that current plan is to go get his stuff from his dad's place and get it somewhere else and then maybe he will consider going to a sober living facility as long as he can work. We talked about being honest about his intentions because if you do not plan for something there is a really low likelihood that it happens. He continued to deny the need or desire for any medication changes. He denied any side effects of medication. Mental Status Exam 2 MSE Comments: This is a well-nourished well-developed white male in hospital scrubs with adequate grooming and eye contact. No abnormal movements except for mild psychomotor retardation. Cooperative with exam in mild distress. Speech was normal rate and slightly decreased volume. Mood described as a little better, affect congruent. Thought process organized. Thought content: Patient denied suicidal or homicidal ideation, there were no delusions reported or noted, he denies any auditory or visual hallucinations. Attention and concentration were intact and memory appeared reliable but none were formally tested. He is alert and oriented x3. Insight and judgment are limited. Impulse control is limited. Vitals/I&O/Wt Last Vital Signs Temp 97.6 F 12/18/24 14:00 Pulse 78 12/18/24 14:00 Resp 16 12/18/24 14:00 BP 120/88 12/18/24 14:00 Pulse Ox 96 12/18/24 14:00 O2 Del Method Room Air 12/18/24 06:00 12/18/24 12/18/24 12/18/24 06:59 14:59 22:59 Intake Total 480 / 480 Balance 480 / 480 Data NPU 12/15/24 12:11 12/15/24 12:11 A&P Assessment and plan 1. Depression: 2. Suicidal ideation: 3. Alcohol intoxication: 4. Alcohol withdrawal: Plan: This is a 49-year-old white male who presented with depression, anxiety and alcohol use and concerns for lethality. Significant psychosocial stressors with recent conflict with his father and being fired from work. 1. Continue current medication. We discussed the possibility of increasing his medication and/or possibly switching to Lexapro. 2. Encourage individual, group and milieu therapy. 3. Continue every 15 minute checks for safety. 4. Encourage sober living treatment after discharge at the highest level care to which he is willing to commit. 5. Obtain collateral information. 6. Observe against the backdrop of the 96-hour hold. 7. Continue CIWA protocol as indicated. PDMP PDMP Reviewed: Not Reviewed Involuntary Hold Information 2 Hold Status: Legal Status: 96 Hour Hold Date/Time Hold Expires: 12/22/2024 @ 1200 Attestations NPU 2 Medical Necessity Statement*: Inpatient hospitalization is medically necessary and the clinically appropriate intervention at this time. We will monitor/initiate medications and make changes as indicated. Likely length of stay 1-3 days. Coding Level of Care Code Acute Code for Chg Fwd Diagnoses Depression F32.A Suicidal ideation R45.851 Alcohol intoxication F10.929 Alcohol withdrawal F10.939
[2024-12-18 22:00] VITALS: BP 144/90; PULSE 65; RESP 17; TEMP 36.8; O2SAT 99
--- NOTE | 2024-12-19 01:28 | P.NPUPN_ITS ---
Subjective NPU 2 Subjective: Patient presented today reporting that things are going fine. He seems to be committed to not going to a sober living place immediately and going to get his stuff first and then managing the other issues then. We discussed a tentative plan for discharge on Saturday and he was open to that and reporting that he might go to the sober living place if he is allowed to work afterwards if it seems to have a beneficial aspect to it. We continue to discuss the fact that sometimes people struggle with following up on those things at the do not do it directly from the hospital. He denied any side effects with medication. Mental Status Exam 2 MSE Comments: This is a well-nourished well-developed white male in hospital scrubs with adequate grooming and eye contact. No abnormal movements except for mild psychomotor retardation. Cooperative with exam in mild distress. Speech was normal rate and slightly decreased volume. Mood described as a little better, affect congruent. Thought process organized. Thought content: Patient denied suicidal or homicidal ideation, there were no delusions reported or noted, he denies any auditory or visual hallucinations. Attention and concentration were intact and memory appeared reliable but none were formally tested. He is alert and oriented x3. Insight and judgment are limited. Impulse control is limited. Vitals/I&O/Wt Last Vital Signs Temp 98.0 F 12/19/24 06:00 Pulse 69 12/19/24 06:00 Resp 16 12/19/24 06:00 BP 109/72 12/19/24 06:00 Pulse Ox 100 12/19/24 06:00 O2 Del Method Room Air 12/19/24 06:00 Weight last 48 hrs Weight 63.049 kg Data NPU 12/15/24 12:11 12/15/24 12:11 A&P Assessment and plan 1. Depression: 2. Suicidal ideation: 3. Alcohol intoxication: 4. Alcohol withdrawal: Plan: This is a 49-year-old white male who presented with depression, anxiety and alcohol use and concerns for lethality. Significant psychosocial stressors with recent conflict with his father and being fired from work. 1. Continue current medication. We discussed the possibility of increasing his medication and/or possibly switching to Lexapro. 2. Encourage individual, group and milieu therapy. 3. Continue every 15 minute checks for safety. 4. Encourage sober living treatment after discharge at the highest level care to which he is willing to commit. 5. Obtain collateral information. 6. Observe against the backdrop of the 96-hour hold. 7. Continue CIWA protocol as indicated. PDMP PDMP Reviewed: Not Reviewed Involuntary Hold Information 2 Hold Status: Legal Status: 96 Hour Hold Date/Time Hold Expires: 12/22/2024 @ 1200 Attestations NPU 2 Medical Necessity Statement*: Inpatient hospitalization is medically necessary and the clinically appropriate intervention at this time. We will monitor/initiate medications and make changes as indicated. Likely length of stay 1-3 days. Coding Level of Care Code Acute Code for Chg Fwd Diagnoses Depression F32.A Suicidal ideation R45.851 Alcohol intoxication F10.929 Alcohol withdrawal F10.939
[2024-12-19 06:00] VITALS: BP 109/72; PULSE 69; RESP 16; TEMP 36.7; O2SAT 100
[2024-12-19] MEDS: multivitamin therapeutic Tablet 1 TAB PO (08:12)
[2024-12-19 12:50] VITALS: BP 152/94; PULSE 74; RESP 21; TEMP 37.1; O2SAT 100
[2024-12-19 19:56] VITALS: BP 115/73; PULSE 70; RESP 16; TEMP 37; O2SAT 99
[2024-12-20 06:00] VITALS: BP 113/73; PULSE 74; RESP 16; TEMP 36.7; O2SAT 99
[2024-12-20] MEDS: multivitamin therapeutic Tablet 1 TAB PO (08:12)
--- NOTE | 2024-12-20 10:37 | PC.NURSE ---
Patient is moslty isolating to his room and reading. He does interact with peers on the unit during meal times. Patient plan after discharge is to go to a motel intially then make arrangments for his belongings to be stored. I discussed sober living after discharge and the patient states that he needs to take care of what little belongings his has first. Education and encouragement for sober living given.
[2024-12-20 14:00] VITALS: BP 120/70; PULSE 73; RESP 16; TEMP 36.7; O2SAT 98
--- NOTE | 2024-12-20 14:42 | P.NPUPN_ITS ---
Subjective NPU 2 Subjective: Patient presented today reporting that he is doing okay. He endorsed the plan to get assistance and go by his dad's place and get his stuff. He reports that he thinks he is going to stay around [place] for a while. He continues to express ambivalence about the sober living plan. We discussed the importance of committing to the process and then using the results to determine whether he should stay longer or what ever. He reports that he is really considering it as long as he can work. He denied any side effects to the medication. Mental Status Exam 2 MSE Comments: This is a well-nourished well-developed white male in hospital scrubs with adequate grooming and eye contact. No abnormal movements except for mild psychomotor retardation. Cooperative with exam in mild distress. Speech was normal rate and slightly decreased volume. Mood described as better, affect congruent. Thought process organized. Thought content: Patient denied suicidal or homicidal ideation, there were no delusions reported or noted, he denies any auditory or visual hallucinations. Attention and concentration were intact and memory appeared reliable but none were formally tested. He is alert and oriented x3. Insight and judgment are limited. Impulse control is limited. Vitals/I&O/Wt Last Vital Signs Temp 98.1 F 12/20/24 14:00 Pulse 73 12/20/24 14:00 Resp 16 12/20/24 14:00 BP 120/70 12/20/24 14:00 Pulse Ox 98 12/20/24 14:00 O2 Del Method Room Air 12/20/24 14:00 Weight last 48 hrs Weight 63.049 kg Data NPU 12/15/24 12:11 12/15/24 12:11 A&P Assessment and plan 1. Depression: 2. Suicidal ideation: 3. Alcohol intoxication: 4. Alcohol withdrawal: Plan: This is a 49-year-old white male who presented with depression, anxiety and alcohol use and concerns for lethality. Significant psychosocial stressors with recent conflict with his father and being fired from work. 1. Continue current medication. We discussed the possibility of increasing his medication and/or possibly switching to Lexapro. 2. Encourage individual, group and milieu therapy. 3. Continue every 15 minute checks for safety. 4. Encourage sober living treatment after discharge at the highest level care to which he is willing to commit. 5. Obtain collateral information. 6. Observe against the backdrop of the 96-hour hold. 7. Continue CIWA protocol as indicated. PDMP PDMP Reviewed: Not Reviewed Involuntary Hold Information 2 Hold Status: Legal Status: 96 Hour Hold Date/Time Hold Expires: 12/22/2024 @ 1200 Attestations NPU 2 Medical Necessity Statement*: Inpatient hospitalization is medically necessary and the clinically appropriate intervention at this time. We will monitor/initiate medications and make changes as indicated. Likely length of stay 1-3 days. Coding Level of Care Code Acute Code for g Fwd Diagnoses Depression F32.A Suicidal ideation R45.851 Alcohol intoxication F10.929 Alcohol withdrawal F10.939
[2024-12-20 19:48] VITALS: BP 129/84; PULSE 70; RESP 17; TEMP 37.3; O2SAT 100
[2024-12-21 06:00] VITALS: BP 113/73; PULSE 78; RESP 16; TEMP 37; O2SAT 100
[2024-12-21] MEDS: multivitamin therapeutic Tablet 1 TAB PO (08:45)
[2024-12-21 12:20] VITALS: BP 113/73; PULSE 78; RESP 16; TEMP 37; O2SAT 100
== END 2024-12-21 13:45 | disposition home or self-care (01) | DRG 881 ==
LOC: ER 12:56 → NP 13:47
PROVIDERS: Admitting Provider Psychiatry & Neurology Psychiatry; Emergency Provider Emergency Medicine; Visit Provider Psychiatry & Neurology Psychiatry
DX: F32.A Depression, unspecified (principal); R45.851 Suicidal ideations; F10.129 Alcohol abuse with intoxication, unspecified; Y90.7 Blood alcohol level of 200-239 mg/100 ml; F41.9 Anxiety disorder, unspecified; Z63.9 Problem related to primary support group, unspecified
CPT/HCPCS: 36415; 80053; 80306; 80307; 81003; 84443; 85025; 93005; 97150; 97165; 99285; J9999